=== PATIENT | male | born 1960 | race Caucasian/White ===

== ENCOUNTER → 2018-11-19 | Outpatient (CLI) | payer BC, OTHER ==
--- NOTE | ~2018-11-19 | 24HR ---
[address] [address] 24 HR ELECTROCARDIOGRAM REPORT Name: SKYLER GARCIA Room #: [facility]#: [id number] ������������� Admission: 11/19/18 ������������� Attend Phys: Royce Sharma MD Discharge: ��� ������������� ��� Date of : 58 Date of Service: 11/19/18239 �� Report #: [id number] �������� ��������������������������������������������[id number] THIS REPORT FOR: //name// [facility] Test Date: 2018-11-19 Test Time: 02:40:00 Pat Name: SKYLER GARCIA Department: Room: Gender: Logging Worker: : 1960 Requested By: Royce Sharma Order Number: [id number] Aby STARK: Interpretive Statements [email or web address] ��������������������������������������������� ���������������������������������������� By: ��������������������������������������������� 9 9 Epiphany MD Nancy /EPI
== END ==
LOC: EDBD 12:48 → CV 12:48
DX: R00.2 Palpitations (principal)